=== PATIENT | female | born 1950 | race Two or more races ===

== ENCOUNTER 2018-07-07 05:37 | Day surgery (SDC) | payer OTHER ==
[~2018-07-07 05:37] MED LIST: CATAFLAM50 MG PO; CIPRO750 MG PO; CLONAZEPAM1 MG PO; Colace 100MG PO; NEURONTIN PO; PERCOCET 5/321 UDTAB PO; SYNTHROID50 MCG; SYNTHROID50 MCG PO; Zolpidem Tartrate 10MG PO; [UNRECOGNIZED DRUG - OTHER] PO
== END 2018-07-07 11:35 | disposition home or self-care (01) ==
LOC: CIR.AMB 05:37
DX: M23.231 Derangement of other medial meniscus due to old tear or injury, right knee (principal); M17.11 Unilateral primary osteoarthritis, right knee; M12.261 Villonodular synovitis (pigmented), right knee; M22.11 Recurrent subluxation of patella, right knee